=== PATIENT | female | born 1965 | race Caucasian/White ===

== ENCOUNTER → 2018-09-07 | Outpatient (CLI) | payer BC | END | disposition home or self-care (01) | LOC: CFH 09:52 | PROVIDERS: ATTEND Family Medicine | DX: Z12.31 Encounter for screening mammogram for malignant neoplasm of breast (principal) | CPT/HCPCS: 77063; 77067 ==

== ENCOUNTER → 2018-09-22 | Outpatient (CLI) | payer BC | END | disposition home or self-care (01) | LOC: CFH 13:27 | PROVIDERS: ATTEND Family Medicine | DX: N63.22 Unspecified lump in the left breast, upper inner quadrant (principal); N65.1 Disproportion of reconstructed breast | CPT/HCPCS: 77065 ==

== ENCOUNTER 2019-05-16 07:55 | Outpatient (CLI) | payer BC | END 2019-05-16 23:59 | disposition home or self-care (01) | LOC: CFH 07:55 | PROVIDERS: ATTEND Family Medicine | DX: R92.8 Other abnormal and inconclusive findings on diagnostic imaging of breast (principal); Z80.3 Family history of malignant neoplasm of breast | CPT/HCPCS: 76642; 77066; G0279 ==